=== PATIENT | female | born 1955 | race Hispanic/Latino ===

== ENCOUNTER → 2019-07-26 | Outpatient (CLI) | payer OTHER | END | disposition home or self-care (01) | LOC: EDBD 07-19 08:00 → RAH 09:41 | PROVIDERS: ATTEND Family Medicine | DX: R92.1 Mammographic calcification found on diagnostic imaging of breast (principal) | CPT/HCPCS: 77066 ==

== ENCOUNTER → 2023-10-26 | Outpatient (CLI) | payer OTHER | END | disposition home or self-care (01) | LOC: RAH 08:19 | PROVIDERS: ATTEND Internal Medicine | DX: Z12.31 Encounter for screening mammogram for malignant neoplasm of breast (principal); R92.333 Mammographic heterogeneous density, bilateral breasts | CPT/HCPCS: 77067 ==

== ENCOUNTER → 2024-01-31 | Outpatient (CLI) | payer OTHER | END | disposition home or self-care (01) | LOC: RAH 13:24 | PROVIDERS: ATTEND Internal Medicine | DX: M85.88 Other specified disorders of bone density and structure, other site (principal); Z78.0 Asymptomatic menopausal state | CPT/HCPCS: 77080 ==

== ENCOUNTER → 2024-09-06 | Outpatient (CLI) | payer OTHER ==
--- NOTE | 2024-09-06 13:18 | HMCIMG ---
DEXA BONE DENSITY SURVEY HISTORY: Osteoporosis COMPARISON: 01/31/2024 FINDINGS: Bone densitometry study was performed. Bone mineral density of the lumbar spine is 0.792 gram per centimeter square which corresponds to a T score of -2.3 and a Z score of -0.4. Bone mineral density of the left hip is 0.937 grams per centimeter square which corresponds to a T score of -0.2 and a Z score of 1.1. IMPRESSION: 1. Normal bone mineral density of the left hip and osteopenia of lumbar spine.
--- NOTE | 2024-09-06 14:09 | HMCIMG ---
US SOFT TISSUE NECK REASON: SWELLING. COMPARISON: None TECHNIQUE: Left neck soft tissue ultrasound study was performed. Additional right neck ultrasound study was performed for comparison purposes. FINDINGS: Over the palpable area, there is masslike structure in the left thyroid area measuring 2 x 1.9 x 2.1 cm. Tissue correlation may be helpful. IMPRESSION: Masslike structure in the left thyroid area measuring 2 x 1.9 x 2.1 cm.
--- NOTE | 2024-09-06 14:10 | HMCIMG ---
US SOFT TISSUE CHEST WALL REASON: SWELLING. COMPARISON: None TECHNIQUE: Left chest wall ultrasound study was performed. FINDINGS: At the region of interest in the left chest wall, there is fatty structure measuring 5.3 x 1.8 x 4.1 cm suggestive lipoma. IMPRESSION: Findings suggestive of a lipoma measuring 5.3 cm.
== END | disposition home or self-care (01) ==
LOC: RAH 09:46
PROVIDERS: ATTEND Family Medicine
DX: Z13.820 Encounter for screening for osteoporosis (principal); M85.88 Other specified disorders of bone density and structure, other site; R22.1 Localized swelling, mass and lump, neck; R22.2 Localized swelling, mass and lump, trunk; Z78.0 Asymptomatic menopausal state
CPT/HCPCS: 76536; 76604; 77080

== ENCOUNTER → 2024-10-24 | Outpatient (CLI) | payer OTHER ==
--- NOTE | 2024-10-24 09:51 | HMCIMG ---
MAMMO SCREENING BILATERAL HISTORY: Screening mammogram. COMPARISON: 10/26/2023 TECHNIQUE: Bilateral screening mammogram with CAD was performed with craniocaudal and mediolateral oblique projections. FINDINGS: The breasts are heterogeneous dense, which may obscure small masses. There is no evidence of a dominant mass, or suspicious microcalcification. There is no evidence of nipple retraction or skin thickening. IMPRESSION: 1. Stable mammogram. Patient was entered into a reminder system with a target due date for their next mammogram. BI-RADS: CATEGORY 2: BENIGN FINDINGS Recommend monthly self breast exam as well as annual clinical examination. A negative x-ray should not delay biopsy if a dominant or clinically suspicious mass is present, since 8-10% of cancers are not identified by mammography. Dense breasts particularly, may obscure an underlying neoplasm. Some of these may be detected clinically and therefore, clinical examination is an essential part of breast evaluation.
== END | disposition home or self-care (01) ==
LOC: RAH 08:16
PROVIDERS: ATTEND Family Medicine
DX: Z12.31 Encounter for screening mammogram for malignant neoplasm of breast (principal); R92.333 Mammographic heterogeneous density, bilateral breasts
CPT/HCPCS: 77067